=== PATIENT | male | born 1990 | race Caucasian/White ===

== ENCOUNTER 2019-08-21 06:38 | Inpatient (IN) | payer SELFPAY ==
[2019-08-21] VITALS (71 sets, daily range): BP systolic 30–174; BP diastolic 19–157; PULSE 88–167; RESP 12–23; TEMP 35.8–39.1; O2SAT 83–100; BMI 21.6; BMI 21.7
--- NOTE | 2019-08-21 07:00 | RAD_ITS ---
STUDY: X-RAY - CERVICAL SPINE REASON FOR EXAM: Male, 28 years old. ONE VIEW OF NECK TO SEE WHAT ET TUBE WAS DOING, (WHY IT WAS NOT ADVANCING) TECHNIQUE: 1 view(s) of the cervical spine were obtained. COMPARISON: None FINDINGS: ET tube is noted near the level of the first rib however, there appears to be increased outpouching of the trachea in the upper neck suggesting possible injury. Enteric tube is noted. RAD/Spine 1 View Any Level IMPRESSION: ET tube noted near the first rib with outpouching of the upper neck/tracheal region suggesting possible injury. Electronically Signed: Tyrone Glynn DO at 7:47 EST Tel , Service support ,
--- NOTE | 2019-08-21 07:00 | RAD_ITS ---
STUDY: X-RAY CHEST REASON FOR EXAM: Male, 28 years old. CPR -- ET AND OG TUBE PLACMENT -- READJUSTED ET TUBE -- PCXR 2 OF 3 TECHNIQUE: Single AP portable view of the chest. COMPARISON: Chest x-ray earlier FINDINGS: ET tube is noted in the high trachea roughly 13 cm from the ruben. Enteric tube below the left hemidiaphragm. Patchy airspace disease bilaterally is unchanged. RAD/Chest 1 View (Portable) IMPRESSION: As above Electronically Signed: Tyrone Glynn DO at 7:41 EST Tel , Service support ,
--- NOTE | 2019-08-21 07:00 | RAD_ITS ---
STUDY: X-RAY CHEST REASON FOR EXAM: Male, 28 years old. CPR -- ET AND OG TUBE PLACMENT -- PCXR 1 OF 3 TECHNIQUE: Single AP portable view of the chest. COMPARISON: Chest x-ray earlier FINDINGS: ET tube is noted however, its tip is roughly 11.5 cm from the ruben. Enteric tube below left hemidiaphragm. Again noted is patchy airspace disease bilaterally. RAD/Chest 1 View (Portable) IMPRESSION: As above Electronically Signed: Tyrone Glynn DO at 7:39 EST Tel , Service support ,
--- NOTE | 2019-08-21 07:00 | RAD_ITS ---
STUDY: X-RAY CHEST REASON FOR EXAM: Male, 28 years old. CPR -- ET AND OG TUBE PLACMENT -- READJUSTED ET TUBE -- PCXR 3 OF 3 TECHNIQUE: Single AP portable view of the chest. COMPARISON: Chest x-ray earlier FINDINGS: ET tube is noted terminating roughly 2.4 cm from the ruben. Enteric tube is seen below left hemidiaphragm. Hyperinflated. There is patchy airspace disease; left greater than right. Groundglass appearance. No consolidation or effusions Normal size heart. Normal mediastinum and ester. Normal visualized pulmonary arteries. Normal visualized aortic arch and descending thoracic aorta. Normal visualized thoracic spine. Normal visualized ribs, clavicles, and shoulders. There is no demonstrated abnormality of the visualized soft tissue structures of the upper abdomen. RAD/Chest 1 View (Portable) IMPRESSION: ET tube and enteric tube as above. Patchy airspace disease with groundglass appearance; left greater right. No consolidation or effusions. Electronically Signed: Tyrone Glynn DO at 7:34 EST Tel , Service support ,
[2019-08-21] MEDS: Norepinephrine 8 mg/250 mL 0.9% NS 9.4 MG CONT INF (07:12)
--- NOTE | 2019-08-21 07:16 | CT_ITS ---
STUDY: CT BRAIN WITHOUT CONTRAST REASON FOR EXAM: Male, 28 years old. Cardiac arrest, down for approx 1 hour, intubated. RADIATION DOSAGE (If Supplied By Facility): CTDIvol = ( ) mGy, DLP = ( ) mGycm TECHNIQUE: Transaxial CT imaging of the brain was performed without administration of intravenous contrast material. Individualized dose optimization techniques were used for this CT. COMPARISON: No relevant priors. FINDINGS: ET tube and enteric tube are noted. There is complete loss of phan/white matter differentiation suggesting severe anoxic brain injury. There is loss of sulci throughout the brain compatible with severe cerebral edema. Slitlike ventricles. There appears to be developing uncal herniation. CT/Brain/Head without Contrast IMPRESSION: Complete loss of phan/white matter differentiation throughout the brain. Complete loss of cerebral sulci compatible with extensive cerebral edema. Slitlike ventricles with developing uncal herniation. All these findings are compatible with severe anoxic brain injury. N.B. : The above information has been verbally conveyed by Tyrone Glynn DO to Salvador Houston MD, on 08/21/2019 07:37:51 (ET). Electronically Signed: Tyrone Glynn DO at 7:38 EST Tel , Service support ,
--- NOTE | 2019-08-21 07:17 | EKG12_ITS ---
Test Reason : CARDIAC ARREST Blood Pressure : / mmHG Vent. Rate : 094 BPM Atrial Rate : 094 BPM P-R Int : 138 ms QRS Dur : 148 ms QT Int : 406 ms P-R-T Axes : 054 142 055 degrees QTc Int : 507 ms Normal sinus rhythm Right bundle branch block Abnormal ECG Confirmed by JAYASHREE NAVARRETE, RASHEEDA ([id number]), deputy editor in chief PENNY BONILLA ([id number]) on 08/25/2019 8:49:07 AM Referred By: Ja Nguyen Confirmed By:JAZMIN BLANC MD
--- NOTE | 2019-08-21 07:19 | CT_ITS ---
STUDY: CTA CHEST REASON FOR EXAM: Male, 28 years old. CARDIAC ARREST DOWN FOR 1 HOUR RADIATION DOSAGE (If Supplied By Facility): CTDIvol = ( 13.35 ) mGy, DLP = ( 532.67 ) mGycm TECHNIQUE: The examination was performed with the intravenous administration of 100ML ISOVUE 370. Post-processing of the angiographic images was performed, with multiplanar reformation and 3D reconstruction. Individualized dose optimization techniques were used for this CT. COMPARISON: None. FINDINGS: ET tube and enteric tube are noted Normal enhancement of the main pulmonary artery and right and left pulmonary arteries. Normal enhancement of the bilateral peripheral pulmonary arteries. There is no demonstrated pulmonary embolism. Normal thoracic aorta and visualized great vessels. Normal heart and pericardium. Normal mediastinum. Normal hilar regions. Normal visualized trachea and bronchi. The lungs are well expanded. Diffuse and dense patchy airspace disease throughout the lung with groundglass appearance, predominantly in the upper lobes; left greater than right. No consolidation or effusions. Normal pleura. Normal chest wall structures. Normal osseous structures. Normal visualized upper abdomen. CT/CTA Chest W/WO Contrast IMPRESSION: Normal CTA chest examination, without a demonstrated pulmonary embolism Diffuse and dense patchy airspace disease throughout the lungs. Predominantly in the upper lobes. Electronically Signed: Tyrone Glynn DO at 7:57 EST Tel , Service support ,
[2019-08-21 07:32] LABS: Absolute Lymphocyte Count 2.41 X10^3/uL (0.83-4.51); Absolute Neutrophil Count 4.4 X10^3/uL (2.0-7.7); Basophil# 0.07 X10^3/uL; Basophil% 0.9 % (0-1); Eosinophil# 0.07 X10^3/uL; Eosinophils% 0.9 % (0-5); Hematocrit 44.2 % (40-54); Hemoglobin 14.7 g/dL (13.0-16.5); Lymphocyte # 2.41 X10^3/ul (4.0); Lymphocyte % 30.2 % (19-41); Mean Corp Hgb Conc 33.3 g/dL (32-36); Mean Corpuscular Volume 99.1 fL (80-94); Mean Platelet Vol. 9.1 fl (6.2-12.0); Monocyte% 8.8 % (0-10); NRBC Flagged by Analyzer 0 % (0-5); Neutrophil # 4.35 X10^3/uL (2.7-7.7); Neutrophil % 54.3 % (47-70); Platelet Count 227 K/mm3 (150-450); RBC Distribution Width SD 43.9 fl (35.1-43.9); Red Blood Count 4.46 M/mm3 (4.6-6.2)
[2019-08-21 07:33] LABS: Bacteria 0 SEEN /hpf (None Seen); Mucous, Urine 0 SEEN /hpf (<or=2+); Squamous Epithelial Cells - UA 0 SEEN /hpf (0-5); White Blood Cells 0 SEEN /hpf (0-5)
--- NOTE | 2019-08-21 07:33 | ED.RN ---
Addendum entered by Lucita Dupree 08/21/19 08:09: ett was pulled out to 24cm at the lip at 0715. levophed is 9.4cc/hr or 5mcg/min. Original Note: 0642 PT ARRIVED VIA COT WITH CPR IN PROGRESS,PT BEING VENTILATED VIA HIGH GEL VIA AMBU BAG.SEE CODE DOCUMENTATION.0647 PT WAS INTUBATED 7.5 ETT, 22 AT THE LIP LINE.EZ CAP POSITIVE,LUNGS EQUAL AND SYMETRICAL. 0655 TEMP BAILEY INSERTED BY EBER Ramírez WITH IMMEDIATE RETURN OF CLEAR YELLOW URINE. OG INSERTED WITH RETURN OF LIGHT BROWN BILE.AND VERIFIED WITH AIR BOLUS. 0657 PER ANGEL SALEH, PULSE LOST, CPR STARTED AND AFTER ONE DOSE OF 1MG EPINEPHRINE GIVEN,PULSE RETURNED. SINUS TACH. 0702 CHEST X-RAY COMPLETED. RT PULLED ETT OUT FURTHER TO LIP LINE OF 25CM. 0715 OR 9.4CC/HR.VERIFIED WITH CHEST X-RAY. CONFIRMED OG BY X-RAY.0712 LEVOPHED STARTED AT 5MCG/MIN. 0720 PT LEFT VIA BED TO CT SCAN WITH RT AND ANGEL RODRIGUEZ RN AND SATISH TOBIN.
[2019-08-21 07:36] LABS: Color, Urine Yellow (Yellow); Glucose, Dipstick Normal (Normal); Ketone-Dipstick 5 mg/dl (Negative); Leukocyte Esterase-Dipstick Negative /ul (Negative); Nitrite-Dipstick Negative (Negative); Occult Blood-Urine Negative /ul (Negative); Protein-Dipstick 30 mg/dl (Negative); Specific Gravity, Urine 1.015 (1.002-1.030); Urine Bilirubin Dipstick Negative (Negative); Urine Clarity Clear (Clear); Urine Urobilinogen Normal (Normal)
[2019-08-21 07:41] LABS: Alcohol, Blood (Medical)-Serum < 3.0 mg/dL
[2019-08-21 07:44] LABS: International Normalized Ratio 1.4; Prothrombin Time (Protime)PT. 16.6 SECONDS (11.7-14.9)
[2019-08-21 07:45] LABS: Partial Thromboplast Time 43.4 Seconds (24.1-36.2)
[2019-08-21 07:46] LABS: AST(SGOT) 108 U/L (15-37); Alanine Aminotransfer ALT/SGPT 95 U/L (16-61); Albumin, Serum 2.8 g/dL (3.2-5.0); Alkaline Phosphatase 68 U/L (45-117); Anion Gap 14 (5-15); BUN 9 mg/dL (7-18); BUN/Creat Ratio 4.7 RATIO (10-20); Calcium,Total 7.8 mg/dL (8.5-10.1); Chloride 104 mmol/L (98-107); Creatinine, Serum 1.91 mg/dL (0.70-1.30); EST Glomerular Filtration Rate 45 mL/min (>60); Est Glom Filt Rate - Afr Amer 54 mL/min (>60); Globulin 2.7 g/dL (2.2-4.2); Glucose 386 mg/dL (74-106); Potassium 3.6 mmol/L (3.5-5.1); Protein, Total 5.5 g/dL (6.4-8.2); Sodium Level 140 mmol/L (136-145)
[2019-08-21 07:47] LABS: Red Blood Cells-Urine 0-5 SEEN /hpf (0-5)
[2019-08-21 07:48] LABS: Amphetamine Urine VISTA NEGATIVE (<1000 ng/mL); Barbiturate Urine VISTA NEGATIVE (< 200 ng/mL); Benzodiazepine Urine VISTA NEGATIVE (< 200 ng/mL); Cocaine Urine VISTA NEGATIVE (< 300 ng/mL); Ecstacy Urine VISTA NEGATIVE (< 500 ng/mL); Methadone Urine VISTA NEGATIVE (< 300 ng/mL); PCP Urine VISTA NEGATIVE (< 25 ng/mL); THC Urine VISTA NEGATIVE (< 50 ng/mL); Vista UDS pH Range 5
[2019-08-21] MEDS: 0.9% Normal Saline 1,000 ML 1000 ML IV ×2 (07:54→08:23)
--- NOTE | 2019-08-21 08:06 | ED.RN ---
0708 REPORT GIVEN TO DMITRY SALEH AT BEDSIDE.
--- NOTE | 2019-08-21 08:17 | ED.VIS.GEN ---
History of Present Illness Chief Complaint: CPR Informant: [employer] Technician Narrative: Patient presents via EMS in cardiac arrest. They stated that the patient was in ventricular tachycardia when they arrived cardiac arrest. The shocked the patient's heart x1 and continue CPR. CPR was in progress for approximately 1 hour prior to the patient arriving in our facility. The patient received 6 rounds of epinephrine for loss of pulse throughout his arrest. Each epinephrine given because the patient's heart rate did come back for short period of time prior to stopping on its own. Upon arrival the patient is undergoing CPR. Past Medical History Primary Care Physician: NOT,DEFINED [Primary Care Provider] - Prior records reviewed: Yes Past Medical History: None Surgical History: - - Reviewed Lives: With Family Alcohol: None Drugs: None Review of Systems ROS: Unable to Obtain - Secondary to cardiac arrest Physical Exam Vital Signs/Narrative: Vital Signs Temp Pulse Pulse Pulse Pulse Resp BP 08/21/19 08:07 96.4 F L 108 H 14 158/121 H 08/21/19 08:06 108 H 14 158/121 H 08/21/19 07:35 103 H 20 H 08/21/19 07:34 100 23 H 159/118 H 08/21/19 07:15 96.5 F L 88 108/95 H 08/21/19 07:12 96.5 F L 100 20 H 108/95 H 08/21/19 06:42 111 H 111 H 114 H BP BP Pulse Ox 08/21/19 08:07 99 08/21/19 08:06 99 08/21/19 07:35 100 08/21/19 07:34 100 08/21/19 07:15 90 08/21/19 07:12 90 08/21/19 06:42 151/101 H 174/157 H General: Acute Distress - Patient comatose. Negative for: Well nourished, Well developed, No Acute Distress Head: Normocephalic, Atraumatic Eyes: - - Toes are fixed and dilated at 5 mm. Negative for: Perrl, EOMI ENT: Moist mucous membranes, No rhinorrhea Neck: Supple, Nontender Cardiovascular: - - Patient in cardiac arrest. Negative for: Regular rate, Regular rhythm, No murmurs Respiratory: - - Patient being bagged with breath sounds bilateral with rhonchi. Negative for: No distress, CTA bilaterally, Chest nontender Abdomen: Soft, Nondistended. Negative for: Nontender, Normal bowel sounds Back: Normal Inspection. Negative for: Nontender Extremities: No edema. Negative for: Nontender Skin: Cyanosis. Negative for: Normal color, No rash Neurological: Coma, - - GCS is 3. Negative for: Alert, Oriented x3, Cranial nerves II-XII grossly intact, Normal Strength, Normal Sensation Psychological: Negative for: Normal affect, Normal Mood Diagnostic/Tx/Re-eval - Medical Decision Making A Combitube is in his airway with good breath sounds bilaterally. The patient was placed on the monitor and in PEA. CPR was resumed ACLS protocol. The patient was given multiple rounds of epinephrine as well as bicarbonate. Blood sugar was approximately 200 for paramedics. The patient's pulse came back easily after epinephrine. The patient was intubated by by myself with a 7.5 ET tube. There were good breath sounds bilaterally and good fogging in the tube. OG and Jean catheter was placed. Chest x-ray initially shows the ET tube just distal to the cords. The ET tube was easily advanced. Patient's pulse ox came up into the mid 90s after intubation. Lab work was obtained. Patient was given IV fluids bolus through ACLS protocol. The patient was started on Levophed due to his inability to keep his pulse without this medication. The patient went down to the CAT scanner and CT brain shows severe anoxic brain injury with elevated pressures. CT chest shows nothing acute. EKG obtained after we got the patient back shows normal sinus rhythm with a right bundle branch block and no STEMI pattern. Patient was immediately discussed with cardiology who felt the patient is not a cardiac cath candidate. Patient discussed with ICU and the hospitalist and he was discussed with the family. The family wants us to continue full measures at this time. Lab work was obtained. Lab work shows a normal CBC. Electrolytes show acute renal failure. Liver function tests show evidence of hepatorenal failure. Influenza is positive. Chest x-ray and CAT scan do show infiltrates likely secondary to CPR and fluid in his lungs. Patient given empiric Zosyn and vancomycin. Analysis shows no evidence of infection. Urine toxicology negative. Alcohol is negative. Upon talking to the family they stated that he had a flulike illness over the last couple days. stated that he slumped over at home and lost consciousness prior to her calling the paramedics. Discussed case with ICU who stated we will not be doing pressure reduction with mannitol due to the severity of his illness and the low likelihood of recovery. Discussed with the hospitalist who stated we will hold off on Tamiflu at this time. - Critical Care Time Critical care time (excluding procedures): 75-104 minutes, Discussing w/Patient &/or Family/Lead Warehouse Associate, Discussing w/Consultants, Arranging Admission or Transfer, Performing Direct Patient Care at Bedside ED Disposition - Plan for ED Patient: Disposition: Acute Care Hospital [facility] Diagnosis: Cardiac arrest, Anoxic brain injury, Influenza
[2019-08-21 08:24] LABS: Lactic Acid 8.3 mmol/L (0.4-1.9)
[2019-08-21 08:40] LABS: Allen Test POS; Base Excess -13 mmol/L (-2 to +2); Blood Gas Specimen Type ART; FI02 100; Mode A-C; O2 Delivery Device Vent; PEEP 8; PO2 108 mmHG (75-100); RR 16; SITE R Radial; SO2 96 % (95-99); Time Given 820; Total Carbon Dioxide 17 mmol/L; Vt 450; pCO2 46.4 mmHg (35-45); pH 7.15 (7.35-7.45)
--- NOTE | 2019-08-21 08:55 | CPS ---
critical ABG results read to at 8515
[2019-08-21] MEDS: Vancomycin IV 1,000 MG/200 ML BAG 200 MG IV (09:01)
[2019-08-21] MEDS: 0.9% Normal Saline 1,000 ML 150 ML IV (09:40)
--- NOTE | 2019-08-21 09:57 | ECHOCS_ITS ---
Reason For Study: CARDIAC ARREST Procedure This was a 2D Doppler, Color Flow transthoracic echocardiogram. Exam performed portable in ICU/CCU. Left Ventricle Moderately dilated left ventricle. The estimated ejection fraction is 10-15 %. Stage 1 diastolic dysfunction. There is severe global hypokinesis of the left ventricle. Right Ventricle Mildly dilated right ventricle. Severe global right ventricular systolic dysfunction. Atria Normal left atrium. Normal right atrium. No doppler evidence for ASD. Mitral Valve There is no mitral valve stenosis. No mitral valve insufficiency. Tricuspid Valve There is no tricuspid stenosis. Trivial tricuspid valve insufficiency. Pulmonary artery systolic pressure is 30-35 mmHg. Aortic Valve Trisinus/trileaflet aortic valve. There is no aortic stenosis. No aortic valve insufficiency. Pulmonic Valve There is no pulmonic valvular stenosis. Trivial pulmonic valve insufficiency identified. Great Vessels Normal aortic root. Pericardium/Pleural No pericardial effusion. Medication Diluted definity 3ml given slow IV push to enhance endocardial definition. MMode/2D Measurements & Calculations LVIDd: 5.6 cm IVSd: 0.79 cm Ao root diam: 3.2 cm LVIDs: 4.9 cm LVPWd: 1.2 cm FS: 10.9 % LAV(MOD-bp): 21.4 ml LVAd ap4: 37.6 cm2 SV(MOD-sp4): 16.0 ml LAV(MOD-bp) Indexed: 11.1 ml/m2 EDV(MOD-sp4): 142.4 ml LAV(MOD-sp2): 15.9 ml EDV(sp4-el): 148.1 ml LAV(MOD-sp4): 24.0 ml LVAs ap4: 35.1 cm2 ESV(MOD-sp4): 126.3 ml ESV(sp4-el): 130.9 ml EF(MOD-sp4): 11.3 % EF(sp4-el): 11.6 % SV(sp4-el): 17.2 ml LA A4 area: 11.4 cm2 LA dimension(2D): 2.0 cm RA A4 area: 9.1 cm2 Doppler Measurements & Calculations MV E max johan: 60.2 cm/sec Lat Peak E' Johan: 13.7 cm/sec Med Peak E' Johan: 10.5 cm/sec MV A max johan: 27.2 cm/sec E/E' lat: 4.4 E/E' med: 5.7 MV E/A: 2.2 MV P1/2t max johan: 59.9 cm/sec Ao V2 max: 61.2 cm/sec LV V1 max: 52.1 cm/sec MV P1/2t: 60.9 msec Ao max P.5 mmHg LV V1 max P.1 mmHg MV dec slope: 287.9 cm/sec2 MVA(P1/2t): 3.6 cm2 PA V2 max: 68.3 cm/sec TR max johan: 242.0 cm/sec TR max P.5 mmHg Interpretation Summary The estimated ejection fraction is 10-15 %. Stage 1 diastolic dysfunction. There is severe global hypokinesis of the left ventricle. Severe global right ventricular systolic dysfunction. Contrast injection was performed. The study was technically difficult. Ordering Physician: Ja Nguyen Referring Physician: Ja Nguyen Performed By: Eliane Pike RDCS
--- NOTE | 2019-08-21 10:02 | CON.PCM_ITS ---
Capacity - Capacity Assessment Tool Can the patient make a choice & communicate that choice?: No Can the patient understand benefits, risks and alternatives?: No Can the patient make a logical, rational choice?: No Is there an impending, emergent risk to the patient?: No Does the patient have an Advance Directive?: No Is there a Surrogate Available?: Yes i.e. close relative (spouse, child, parent, sibling)?: Yes Reason for Consult Date of Consultation: 08/21/19 Reason for Consultation: Acute hypoxemic respiratory failure/status post cardiac arrest History of Present Illness: The patient is a 28-year-old male, with a history as outlined below, who presented to the emergency department via EMS after developing cardiac arrest in his home environment. The patient was apparently preparing for work this morning when he went into pulseless wide-complex tachycardia. The patient received ACLS by EMS and was shocked x1. Apparently, due to the location of the patient's home and time associated with EMS response and transport to the hospital, there was an estimated 1 hour of downtime prior to arriving to the emergency department. Multiple rounds of epinephrine had been given prior to his arrival. In the emergency department, the patient was noted to be in PEA and received continued rounds of epinephrine. Eventually, return of spontaneous circulation was achieved. Of note, the patient arrived to the hospital with an LMA in place. He was emergently intubated upon his arrival to the emergency department. Initial laboratory evaluation revealed no evidence of a leukocytosis. Initial arterial blood gas revealed a pH of 7.15 with a corresponding PCO2 of 46 and PO2 of 108. Chemistry profile was notable for acute kidney injury with a creatinine of 1.91. Glucose was elevated at 386. Lactate was elevated to 8.3. AST and ALT were mildly increased to 108 and 95, respectively. Initial troponin was elevated to 0.472. Urinalysis was unremarkable. Toxicology screen was negative. Alcohol level was negative. Rapid influenza screen was positive for influenza B. A stat head CT revealed complete loss of phan/white matter differentiation along with slitlike ventricles with developing uncal herniation. These findings were consistent with anoxic brain injury. CTA chest revealed no evidence for pulmonary embolism. However, there was extensive bilateral airspace disease. The patient was started empirically on antimicrobials and admitted to the medical intensive care unit for further management. Past Medical History Allergies No Known Allergies Allergy (Verified 08/21/19 08:41) Home Medications: Ambulatory Orders Medication Instructions Recorded NK 08/21/19 Surgical History: - - Reviewed Lives: With Family Smoking Status: Unknown if ever smoked Alcohol: None Drugs: None - *Family History Maternal History Items: No pertinent history Paternal History Items: No pertinent history Review of Systems Unable to obtain accurate/complete ROS d/t: Due to current intubation and mechanical ventilation status Objective: The patient's most recent lab work, culture data and imaging studies have all been personally reviewed. Respiratory panel was positive for influenza B. - Physical Exam Vitals/I&O's: Vital Signs Temp Pulse Resp BP Pulse Ox 96.6 F L 100 16 105/61 95 08/21/19 09:09 08/21/19 09:09 08/21/19 09:09 08/21/19 09:09 08/21/19 09:09 Oxygen Flow Rate (L/min) 100 Oxygen Delivery Method Mechanical Ventilator Weight: 155 lb Body Mass Index (BMI) 21.6 Intake and Output for Last 24 Hours 08/19/19 08/20/19 08/21/19 23:59 23:59 23:59 Intake Total 2099.2099. Balance 2099.2099. General: - - Currently intubated and mechanically ventilated. Frequent dyssynchrony noted on assist control. HEENT: Atraumatic, Normocephalic, - - Pupils are fixed and dilated Oral: No Gingival or Mucosal Lesions/ Ulcerations, - - Endotracheal and OG tubes currently in place Neck: Supple, No Nodes, Trachea Midline Lungs: - - Significant coarse bilateral crackles present Cardiovascular: Normal S1, Normal S2, No murmurs, Tachycardic Abdomen: Soft, Non-Distended, Hypoactive Bowel Sounds Extremities: No clubbing, No cyanosis, No edema Skin: No breakdown Musculoskeletal: No Muscle Wasting Lymphatic: No Cervical, Supraclavicular, or Inguinal Adenopathy Neurological: - - Currently nonresponsive to verbal and painful stimulation. No gag reflex present. Nevertheless, the patient does initiate breaths on spontaneous mode of mechanical ventilation. Labs (Last 48 Hours) 08/21/19 08/21/19 08/21/19 06:50 06:50 06:50 WBC 8.0 RBC 4.46 L Hgb 14.7 Hct 44.2 MCV 99.1 H MCH 33.0 H MCHC 33.3 RDW Std Deviation 43.9 RDW Coeff of [place] 12.0 Plt Count 227 MPV 9.1 Immature Gran % (Auto) 4.900 H Neut % (Auto) 54.3 Lymph % (Auto) 30.2 [place] % (Auto) 8.8 Eos % (Auto) 0.9 Baso % (Auto) 0.9 Absolute Neuts (auto) 4.4 Absolute Lymphs (auto) 2.41 Nucleated RBC % 0 PT 16.6 H INR 1.4 APTT 43.4 H Specimen Type Sample Site pH Bicarbonate Actual POC Total CO2 Base Excess O2 Saturation O2 % ABG pCO2 ABG pO2 Mike Test Respiration Rate O2 Delivery Device Vent Mode Tidal Volume POC PEEP Blood Gas Notified Whom Blood Gas Notified Time Sodium 140 Potassium 3.6 Chloride 104 Carbon Dioxide 22.0 Anion Gap 14 BUN 9 Creatinine 1.91 H Est GFR (MDRD) Af Amer 54 L Est GFR (MDRD) Non-Af 45 L BUN/Creatinine Ratio 4.7 L Glucose 386 H Lactic Acid Calcium 7.8 L Phosphorus Magnesium Total Bilirubin 0.30 AST 108 H ALT 95 H Alkaline Phosphatase 68 Troponin I 0.472 H Total Protein 5.5 L Albumin 2.8 L Globulin 2.7 Albumin/Globulin Ratio 1.0 Urine Color Urine Clarity Urine pH Ur Specific [place] Urine Protein Urine Glucose (UA) Urine Ketones Urine Occult Blood Urine Nitrite Urine Bilirubin Urine Urobilinogen Ur Leukocyte Esterase Urine RBC Urine WBC Ur Squamous Epith Cells Urine Bacteria Urine Mucus Urine Opiates Screen Urine Methadone Screen Ur Barbiturates Screen Ur Phencyclidine Scrn Ur Amphetamines Screen U Methamphetamin-MDMA U Benzodiazepines Scrn Urine Cocaine Screen U Cannabinoids Screen Ur Drug Screen Comment Ethyl Alcohol 08/21/19 08/21/19 08/21/19 06:50 06:50 06:58 WBC RBC Hgb Hct MCV MCH MCHC RDW Std Deviation RDW [place]eff of [place] Plt Count MPV Immature Gran % (Auto) Neut % (Auto) Lymph % (Auto) [place] % (Auto) Eos % (Auto) Baso % (Auto) Absolute Neuts (auto) Absolute Lymphs (auto) Nucleated RBC % PT INR APTT Specimen Type Sample Site pH Bicarbonate Actual POC Total CO2 Base Excess O2 Saturation O2 % ABG pCO2 ABG pO2 Mike Test Respiration Rate O2 Delivery Device Vent Mode Tidal Volume POC PEEP Blood Gas Notified Whom Blood Gas Notified Time Sodium Potassium Chloride Carbon Dioxide Anion Gap BUN Creatinine Est GFR (MDRD) Af Amer Est GFR (MDRD) Non-Af BUN/Creatinine Ratio Glucose Lactic Acid Calcium Phosphorus Pending Magnesium Pending Total Bilirubin AST ALT Alkaline Phosphatase Troponin I Total Protein Albumin Globulin Albumin/Globulin Ratio Urine Color Yellow Urine Clarity Clear Urine pH 6.0 Ur Specific [place] 1.015 Urine Protein 30 H Urine Glucose (UA) Normal Urine Ketones 5 H Urine Occult Blood Negative Urine Nitrite Negative Urine Bilirubin Negative Urine Urobilinogen Normal Ur Leukocyte Esterase Negative Urine RBC 0-5 SEEN Urine WBC 0 SEEN Ur Squamous Epith Cells 0 SEEN Urine Bacteria 0 SEEN Urine Mucus 0 SEEN Urine Opiates Screen Urine Methadone Screen Ur Barbiturates Screen Ur Phencyclidine Scrn Ur Amphetamines Screen U Methamphetamin-MDMA U Benzodiazepines Scrn Urine Cocaine Screen U Cannabinoids Screen Ur Drug Screen Comment Ethyl Alcohol < 3.0 08/21/19 08/21/19 08/21/19 06:58 07:44 08:24 WBC RBC Hgb Hct MCV MCH MCHC RDW Std Deviation RDW [place]eff [place] Plt Count MPV Immature Gran % (Auto) Neut % (Auto) Lymph % (Auto) [place] % (Auto) Eos % (Auto) Baso % (Auto) Absolute Neuts (auto) Absolute Lymphs (auto) Nucleated RBC % PT INR APTT Specimen Type ART Sample Site R Radial pH 7.15 L* Bicarbonate Actual 16.0 L POC Total CO2 17 Base Excess -13 L O2 Saturation 96 O2 % 100 ABG pCO2 46.4 H ABG pO2 108 H Mike Test POS Respiration Rate 16 O2 Delivery Device Vent Vent Mode A-C Tidal Volume 450 POC PEEP 8 Blood Gas Notified Whom ED MD Blood Gas Notified Time 820 Sodium Potassium Chloride Carbon Dioxide Anion Gap BUN Creatinine Est GFR (MDRD) Af Amer Est GFR (MDRD) Non-Af BUN/Creatinine Ratio Glucose Lactic Acid 8.3 H* Calcium Phosphorus Magnesium Total Bilirubin AST ALT Alkaline Phosphatase Troponin I Total Protein Albumin Globulin Albumin/Globulin Ratio Urine Color Urine Clarity Urine pH Ur Specific [place] Urine Protein Urine Glucose (UA) Urine Ketones Urine Occult Blood Urine Nitrite Urine Bilirubin Urine Urobilinogen Ur Leukocyte Esterase Urine RBC Urine WBC Ur Squamous Epith Cells Urine Bacteria Urine Mucus Urine Opiates Screen NEGATIVE Urine Methadone Screen NEGATIVE Ur Barbiturates Screen NEGATIVE Ur Phencyclidine Scrn NEGATIVE Ur Amphetamines Screen NEGATIVE U Methamphetamin-MDMA NEGATIVE U Benzodiazepines Scrn NEGATIVE Urine Cocaine Screen NEGATIVE U Cannabinoids Screen NEGATIVE Ur Drug Screen Comment Ethyl Alcohol Microbiology 08/21/19 07:36 Mucosa - Nose Influenza Types A,B Direct FA (KENDALL) - Final Influenzae B Clinical Impression(s) from Imaging Studies Chest X-Ray 08/21/19 07:00 IMPRESSION: As above Electronically Signed: Tyrone Glynn DO at 7:39 EST Tel , Service support , Chest X-Ray 08/21/19 07:00 IMPRESSION: As above Electronically Signed: Tyrone Glynn DO at 7:41 EST Tel , Service support , Chest X-Ray 08/21/19 07:00 IMPRESSION: ET tube and enteric tube as above. Patchy airspace disease with groundglass appearance; left greater right. No consolidation or effusions. Electronically Signed: Tyrone Glynn DO at 7:34 EST Tel , Service support , Spine X-Ray 08/21/19 07:00 IMPRESSION: ET tube noted near the first rib with outpouching of the upper neck/tracheal region suggesting possible injury. Electronically Signed: Tyrone Glynn DO at 7:47 EST Tel , Service support , Brain CT 08/21/19 07:16 IMPRESSION: Complete loss of phan/white matter differentiation throughout the brain. Complete loss of cerebral sulci compatible with extensive cerebral edema. Slitlike ventricles with developing uncal herniation. All these findings are compatible with severe anoxic brain injury. N.B. : The above information has been verbally conveyed by Tyrone Glynn DO to Salvador Houston MD, on 08/21/2019 07:37:51 (ET). Electronically Signed: Tyrone Glynn DO at 7:38 EST Tel , Service support , ADDENDUM: 08/21/19 0745 IMPRESSION: Complete loss of phan/white matter differentiation throughout the brain. Complete loss of cerebral sulci compatible with extensive cerebral edema. Slitlike ventricles with developing uncal herniation. All these findings are compatible with severe anoxic brain injury. N.B. : The above information has been verbally conveyed by Tyrone Glynn DO to Salvador Houston MD, on 08/21/2019 07:37:51 (ET). Electronically Signed: Tyrone Glynn DO at 7:38 EST Tel , Service support , Chest CTA 08/21/19 07:19 IMPRESSION: Normal CTA chest examination, without a demonstrated pulmonary embolism Diffuse and dense patchy airspace disease throughout the lungs. Predominantly in the upper lobes. Electronically Signed: Tyrone Glynn DO at 7:57 EST Tel , Service support , Current Medications Famotidine (Pepcid) 20 mg GT BID ETHEL Glucagon () 1 mg IM .X1 PRN PRN Reason: Hypoglycemia Heparin Sodium (Porcine) (Heparin Na) 5,000 unit SC Q8 [facility] Norepinephrine Bitartrate 8 mg (/ Sodium Chloride) 250 mls @ 9.375 mls/hr CONT INF .[id number] ETHEL; Protocol Last Admin: 08/21/19 07:12 Dose: 5 mcg/min, 9.4 mls/hr Documented by: Sodium Chloride () 1,000 mls @ 150 mls/hr IV .Q6H40M ETHEL Dextrose (Dextrose 10%-Water) 250 mls @ 999 mls/hr IV .Q16M PRN; Protocol PRN Reason: HYPOGLYCEMIA Vancomycin IV Pharmacy to Dose (1 ea/ Sodium Chloride) 500 mls @ 250 mls/hr IV X1 PRN; Protocol PRN Reason: Rx to Dose Piperacillin Sod/Tazobactam (Sod 3.375 gm/ Sodium Chloride) 50 mls @ 12.5 mls/hr IV Q8 ETHEL Fentanyl () 100 mls @ 5 mls/hr IV UD ETHEL; Protocol Insulin Human Lispro (Humalog Kwikpen (Bkc)) 0 unit SC Q6 ETHEL; Protocol Oseltamivir Phosphate (Tamiflu) 30 mg GT BID ETHEL Stop: 08/25/19 22:01 Assessment/Plan RECOMMENDATIONS: 1. Check mag and Phos levels given ectopy on telemetry. 2. Obtain arterial blood gas in 1 hour. 3. Wean FiO2 to maintain oxygen saturations at or above 90%. 4. Continue broad-spectrum antimicrobials. Continue Tamiflu. 5. Start Pepcid for prophylaxis. IMPRESSIONS: 1. Acute combined respiratory failure status post out of hospital cardiac arrest The exact precipitating etiology for the patients out of hospital cardiac arrest is unclear. Per family, he has no known cardiac history. The patient did have an extensive amount of downtime prior to successful return of spontaneous circulation. The patient's ventilator parameters will be augmented to optimize his minute ventilation in an attempt to drive down his PCO2. FiO2 will be weaned as tolerated. The patient was positive for influenza B in the emergency department. His CTA chest showed no evidence for pulmonary embolism. However, there was evidence of significant bilateral airspace disease. Therefore, given his full CODE STATUS, the patient will be placed on empiric antimicrobials and cultures will be obtained. 2. Encephalopathy Appears to be secondary to anoxic brain injury suffered as a consequence of #1. The patients CT head revealed significant findings concerning for global anoxic brain injury and developing uncal herniation. 3. Severe sepsis As noted above, the patient will be started on broad-spectrum antimicrobials, given concern for influenza infection with possible superimposed bacterial pneumonia. He has received supplemental IV fluid hydration and is currently hemodynamically stable. Suspect the elevated lactate is secondary to profound hypoxemia on presentation. In addition, the patient has also been started on Tamiflu. 4. Acute kidney injury/hyperphosphatemia/hypomagnesemia Suspect secondary to ischemic ATN in the setting of #1. We will continue current supportive measures as noted above and monitor urine output. 5. CODE STATUS/advance care planning I did have a very fede discussion with the patient's and mother regarding his current clinical status and overall poor prognosis. I explained their options for moving forward in his care, including an explanation of the differences in CODE STATUS. I did advocate that they consider transitioning the patient to DNR CCA, as I am concerned that given the findings noted on CT head he may once again experience cardiac arrest in the near future. They voiced to me that they would like to talk things over as a family and are also entertaining the idea of transferring the patient to a tertiary care facility UPDATE: Over the course of the afternoon, the patient continued to decompensate clinically. The hospitalist contacted multiple tertiary care facilities due to family request for transfer. [facility] in [place] did accept the patient. However, upon arrival of the transport team from [place], the patient once again experienced PEA cardiac arrest. ACLS was initiated and 1 round of epi was administered. Return of spontaneous circulation was achieved. The patient required the initiation of both Levophed and vasopressin to maintain hemodynamic stability. A great deal of time was spent talking with the family and transport team regarding the patient's clinical state and my concern that the patient would decompensate further while en route to [place]. I did explain to the patient's family that [facility] would likely not do anything in addition to what was already being employed clinically for the patient here. I did call and speak with the ICU team at [facility] who did confirm that the support that he would receive from them would be exactly the same as that he is receiving here. Following this discussion, the patient's decided to keep the patient here, but wished that he remain a full code. TIME: 85 minutes of critical care time, independent of procedures, was spent addressing the patient's acute combined respiratory failure, status post out of hospital cardiac arrest, encephalopathy, severe sepsis, acute kidney injury, electrolyte derangements, review of all data and collaboration with the care team. ([id number], [id number]) Code Visit Procedures: 85240 Critial Care Addl 30 Min 9xxxx: 11132 Critical care first hour
--- NOTE | 2019-08-21 10:24 | PCM.RX.CS ---
Consult Pharmacy has been consulted to manage selected antiobiotic: Vancomycin Type of Consult: New start Suspected Infection: Other Prior Doses of Antibiotics Received/Current Regimen: VANCOMYCIN 1000MG IV X1 IN ED 08/21/19 @0901 Labs: Sodium 140 mmol/L (136-145) 08/21/19 06:50 Potassium 3.6 mmol/L (3.5-5.1) 08/21/19 06:50 Chloride 104 mmol/L (98-107) 08/21/19 06:50 Carbon Dioxide 22.0 mmol/L (21.0-32.0) 08/21/19 06:50 Anion Gap 14 (5-15) 08/21/19 06:50 BUN 9 mg/dL (7-18) 08/21/19 06:50 Creatinine 1.91 mg/dL (0.70-1.30) H 08/21/19 06:50 Est GFR (MDRD) Af Amer 54 mL/min (>60) L 08/21/19 06:50 Est GFR (MDRD) Non-Af 45 mL/min (>60) L 08/21/19 06:50 BUN/Creatinine Ratio 4.7 RATIO (10-20) L 08/21/19 06:50 Glucose 386 mg/dL (74-106) H 08/21/19 06:50 Microbiology: Microbiology 08/21/19 07:36 Mucosa - Nose Influenza Types A,B Direct FA (KENDALL) - Final Influenzae B Weight used for dosin.3 kg Estimated Creatinine Clearance: 57 ML/MIN Goal Trough: 15-20 mcg/mL Pharmacy Plan for Drug Dosing: Pharmacy to dose vancomycin. The patient was ordered a loading dose, which would qualify the patient for 1750mg. Since the patient got 1000mg IV in the ER, will give a supplement dose of 750mg to start now. Will go ahead and start scheduled dosing 750mg IV Q12hr and draw a trough prior to the 4th dose of scheduled regimen. Will continue to follow. PLAN/RECOMMENDATIONS 1. Vancomycin 750mg IV Q12hrs to start 08/21/19 @1100 2. Trough scheduled prior to 4th dose of SCHEDULED regimen 08/22/19 @2230 3. Pharmacy Service will continue to monitor and adjust dosing as required.
[2019-08-21 10:32] LABS: Magnesium 2.8 mg/dL (1.6-2.6)
[2019-08-21 11:01] LABS: Allen Test POS; Base Excess -10 mmol/L (-2 to +2); Bicarbonate 19.4 mmol/L (22-26); Blood Gas Specimen Type ART; FI02 100; Mode A-C; O2 Delivery Device Vent; PEEP 5; PO2 94 mmHG (75-100); RR 14; SITE L Radial; SO2 94 % (95-99); Time Given 1040; Total Carbon Dioxide 21 mmol/L; Vt 500; pCO2 60.7 mmHg (35-45); pH 7.11 (7.35-7.45)
[2019-08-21] MEDS: fentaNYL drip 100 ML 5 MCG IV (11:26)
[2019-08-21] MEDS: Lactated Ringers 1,000 ML 999 ML IV ×2 (11:30→14:34)
[2019-08-21 11:47] LABS: Reflex Lactate? Y
--- NOTE | 2019-08-21 11:48 | CPS ---
critical ABG results cortexted to at 1056. He is aware and vent changes were made
--- NOTE | 2019-08-21 12:28 | CASEMGMT ---
Social Work Pt presents with cardiac arrest and anoxic brain injury. Pt currently on ventilator. KAVEH entered room and met with pt North and pt father in law. Emotional support provided. Many family members are present in waiting area. SW also met with family and offered support. Pt has two daughters, age 12 and 9 and North inquiring if they can see pt. KAVEH placed call to Ruth RN Infection Prevention to inquire if children can visit pt. Ruth confirms that due to end of life situation, policy allows for children to visit pt. KAVEH met with North, additional support provided. SW informed North children can visit pt but did inform that pt is positive for flu and risk to children. Emphasized importance to wear mask and wash hands. KAVEH also talked with North about talking to daughters about how pt looks with ventilator and IVs prior to taking them into pt room and to consider how daughters will respond to seeing pt as he is currently. North expressed understanding and will think about best option for the girls. SW encouraged Pt to verbalize feelings regarding sudden medical emergency of pt. Extensive time spent with pt . Walter expressing appreciation for support. SW will remain available for further needs of pt family. LLOYD Olsen
[2019-08-21 12:47] LABS: Lactic Acid 2.8 mmol/L (0.4-1.9)
[2019-08-21] MEDS: Dextrose 10%-Water 250 ML 999 ML IV (13:15)
--- NOTE | 2019-08-21 14:17 | CASEMGMT ---
Social Work Pt to be transferred to tertiary hospital. Pt not in pt room. SW entered waiting area. Pt not present but pt father in law present. SW spoke with father in law who states went home to get clothes and will be returning shortly. Support provided to pt father in law. SW will remain available should further needs arise. LLOYD Olsen
[2019-08-21 14:36] LABS: Bedside Glucose 111 mg/dL (70-110)
--- NOTE | 2019-08-21 14:48 | HP.PCM_ITS ---
Problem List (1) Cardiac arrest Status: Acute History of Present Illness Date of Admission: 08/21/19 Chief Complaint: Out of hospital cardiac arrest The patient is a 28 year old M who was brought in by squad to [facility] emergency room having suffered a cardiac arrest at home in the presence of his , squad arrived on scene and found the patient to be in ventricular tachycardia and he was shocked and CPR was started. Patient was given multiple doses of epinephrine and CPR continued for approximately an hour until he came to the emergency room at [facility]. On arrival, he was noted to be in PEA, CPR was continued and the patient was intubated and given epinephrine and bicarbonate. Pulse ox was able to be maintained after he was intubated and he was taken to CT where a head CT showed anoxic brain injury with elevated intracranial pressures. CT of the chest showed bilateral infiltrates felt to be secondary to CPR and fluid accumulation in the lungs, EKG obtained after the patient returned from CT showed a normal sinus rhythm with a right bundle branch block pattern. Discussions were carried out by the emergency room physician with the family including the patient's and [id number], they wanted full measures and cardiology was contacted by the emergency room physician, cardiology did not feel the patient was a candidate for a cardiac cath. Critical care was contacted and Dr. Nguyen saw the patient in the emergency room, patient was given empiric Zosyn and vancomycin. Dr. Nguyen did not feel that administration of mannitol would help the patient's medical condition. Hospitalist service was called for admission, I saw the patient briefly in the emergency room and talked with the patient's [id number] who told me that she believed there was hope for the patient and that the family wanted to continue aggressive care. Patient was admitted to ICU under serious condition. Past Medical History Allergies No Known Allergies Allergy (Verified 08/21/19 08:41) Home Medications: Ambulatory Orders Medication Instructions Recorded NK 08/21/19 Surgical History: noncontributory, - - Reviewed Psychiatric History: No pertinent psych hx Lives: With Family Smoking Status: Never smoker Tobacco Use: Non-smoker Alcohol: None Drugs: None - *Family History Maternal History Items: No pertinent history Paternal History Items: No pertinent history Review of Systems Comment: Review of systems was unobtainable due to the fact the patient was intubated and unresponsive, information was obtained from the patient's medical record VTE Information - Inpt Only VTE Present on Admission: No VTE Mechan Device Prophylaxis: None VTE Pharm Prophylaxis ordered?: Yes Patient Problems: Active and Suspected Problems Cardiac arrest (Acute) Anoxic brain injury (Acute) Influenza (Acute) - Physical Exam Vitals/I&O's: Vital Signs Temp Pulse Resp BP Pulse Ox 96.7 F L 144 H 16 63/39 L 98 08/21/19 13:00 08/21/19 14:00 08/21/19 14:00 08/21/19 14:00 08/21/19 14:00 Oxygen Flow Rate (L/min) 100 Oxygen Delivery Method Mechanical Ventilator Weight: 70.3 kg Body Mass Index (BMI) 21.7 Intake and Output for Last 24 Hours 08/19/19 08/20/19 08/21/19 23:59 23:59 23:59 Intake Total 2420.42 / 2420.42 Balance 2420.42 / 2420.42 General: - - Patient is intubated and nonresponsive to painful or verbal stimuli HEENT: Atraumatic, Normocephalic, - - Pupils are 5 mm bilaterally and nonresponsive to light Oral: Moist Mucosa Neck: No JVD, Negative Carotid Bruits, Trachea Midline, Thyroid Normal Size and Texture Lungs: Normal air movement, Rhonchi - Expiratory rhonchi are noted bilaterally Cardiovascular: Regular rate, Regular Rhythm, No murmurs, PMI Normal, No rub noted, Tachycardic Abdomen: Bowel Sounds Present, Soft, Non Tender Extremities: No edema, Capillary Refill Less than 3 Seconds Skin: No rashes, No breakdown Neurological: Cranial nerves II-XII grossly intact, - - Patient appears comatose Psych/Mental Status: - - Patient is comatose Microbiology Past 72 Hours 08/21/19 07:36 Mucosa - Nose Influenza Types A,B Direct FA ([place]) - Final Influenzae B Laboratory Results 08/21/19 06:50: WBC 8.0, RBC 4.46 L, Hgb 14.7, Hct 44.2, MCV 99.1 H, MCH 33.0 H, MCHC 33.3, RDW Std Deviation 43.9, RDW Coeff of [place] 12.0, Plt Count 227, MPV 9.1, Immature Gran % (Auto) 4.900 H, Neut % (Auto) 54.3, Lymph % (Auto) 30.2, [place] % (Auto) 8.8, Eos % (Auto) 0.9, Baso % (Auto) 0.9, Absolute Neuts (auto) 4.4, Absolute Lymphs (auto) 2.41, Nucleated RBC % 0 08/21/19 06:50: PT 16.6 H, INR 1.4, APTT 43.4 H 08/21/19 06:50: Sodium 140, Potassium 3.6, Chloride 104, Carbon Dioxide 22.0, Anion Gap 14, BUN 9, Creatinine 1.91 H, Est GFR (MDRD) Af Amer 54 L, Est GFR (MDRD) Non-Af 45 L, BUN/Creatinine Ratio 4.7 L, Glucose 386 H, Calcium 7.8 L, Total Bilirubin 0.30, AST 108 H, ALT 95 H, Alkaline Phosphatase 68, Troponin I 0.472 H, Total Protein 5.5 L, Albumin 2.8 L, Globulin 2.7, Albumin/Globulin Ratio 1.0 08/21/19 06:50: Ethyl Alcohol < 3.0 08/21/19 06:50: Phosphorus 9.0 H*, Magnesium 2.8 H 08/21/19 06:58: Urine Color Yellow, Urine Clarity Clear, Urine pH 6.0, Ur Specific [place] 1.015, Urine Protein 30 H, Urine Glucose (UA) Normal, Urine Ketones 5 H, Urine Occult Blood Negative, Urine Nitrite Negative, Urine Bilirubin Negative, Urine Urobilinogen Normal, Ur Leukocyte Esterase Negative, Urine RBC 0-5 SEEN, Urine WBC 0 SEEN, Ur Squamous Epith Cells 0 SEEN, Urine Bacteria 0 SEEN, Urine Mucus 0 SEEN 08/21/19 06:58: Urine Opiates Screen NEGATIVE, Urine Methadone Screen NEGATIVE, Ur Barbiturates Screen NEGATIVE, Ur Phencyclidine Scrn NEGATIVE, Ur Amphetamines Screen NEGATIVE, U Methamphetamin-MDMA NEGATIVE, U Benzodiazepines Scrn NEGATIVE, Urine Cocaine Screen NEGATIVE, U Cannabinoids Screen NEGATIVE, Ur Drug Screen Comment 08/21/19 07:44: Lactic Acid 8.3 H* 08/21/19 08:24: Specimen Type ART, Sample Site R Radial, pH 7.15 L*, Bicarbonate Actual 16.0 L, POC Total CO2 17, Base Excess -13 L, O2 Saturation 96, O2 % 100, ABG pCO2 46.4 H, ABG pO2 108 H, Mike Test POS, Respiration Rate 16, O2 Delivery Device Vent, Vent Mode A-C, Tidal Volume 450, POC PEEP 8, Blood Gas Notified Whom ED , Blood Gas Notified Time 820 08/21/19 10:20: MRSA (PCR) Pending 08/21/19 10:45: Specimen Type ART, Sample Site L Radial, pH 7.11 L*, Bicarbonate Actual 19.4 L, POC Total CO2 21, Base Excess -10 L, O2 Saturation 94 L, O2 % 100, ABG pCO2 60.7 H, ABG pO2 94, Mike Test POS, Respiration Rate 14, O2 Delivery Device Vent, Vent Mode A-C, Tidal Volume 500, POC PEEP 5, Blood Gas Notified Whom ICU , Blood Gas Notified Time 1040 08/21/19 12:05: Lactic Acid 2.8 H* 08/21/19 14:13: POC Glucose 111 H Current Medications Famotidine (Pepcid) 20 mg GT BID [facility] Last Admin: 08/21/19 13:23 Dose: Not Given Documented by: Glucagon () 1 mg IM .X1 PRN PRN Reason: Hypoglycemia Heparin Sodium (Porcine) (Heparin Na) 5,000 unit SC Q8 [facility] Last Admin: 08/21/19 14:35 Dose: Not Given Documented by: Norepinephrine Bitartrate 8 mg (/ Sodium Chloride) 250 mls @ 9.375 mls/hr CONT INF .[id number] [facility]; Protocol Last Titration: 08/21/19 14:00 Dose: 10 mcg/min, 18.8 mls/hr Documented by: Sodium Chloride () 1,000 mls @ 150 mls/hr IV .Q6H40M [facility] Last Admin: 08/21/19 09:40 Dose: 150 mls/hr Documented by: Dextrose (Dextrose 10%-Water) 250 mls @ 999 mls/hr IV .Q16M PRN; Protocol PRN Reason: HYPOGLYCEMIA Last Admin: 08/21/19 13:15 Dose: 999 mls/hr Documented by: Vancomycin IV Pharmacy to Dose (1 ea/ Sodium Chloride) 500 mls @ 250 mls/hr IV PRN PRN; Protocol PRN Reason: Rx to Dose Piperacillin Sod/Tazobactam (Sod 3.375 gm/ Sodium Chloride) 50 mls @ 12.5 mls/hr IV Q8 [facility] Last Admin: 08/21/19 13:24 Dose: 12.5 mls/hr Documented by: Fentanyl () 100 mls @ 5 mls/hr IV UD [facility]; Protocol Last Titration: 08/21/19 14:00 Dose: 50 mcg/hr, 5 mls/hr Documented by: Vancomycin HCl 750 mg/ Sodium (Chloride) 265 mls @ 250 mls/hr IV Q12H [facility] Last Infusion: 08/21/19 12:45 Dose: Infused Documented by: Lactated Ringer's () 1,000 mls @ 999 mls/hr IV .Q1H1M [facility] Stop: 08/21/19 15:25 Last Admin: 08/21/19 14:34 Dose: 999 mls/hr Documented by: Influenza Virus Vaccine Quadrival (Flucelvax /Fluzone ) 0.5 ml IM .ONCE ONE Stop: 08/22/19 10:01 Insulin Human Lispro (Humalog Kwikpen (Bkc)) 0 unit SC Q6 [facility]; Protocol Last Admin: 08/21/19 13:23 Dose: Not Given Documented by: Oseltamivir Phosphate (Tamiflu Susp) 30 mg GT BID [facility] Stop: 08/25/19 22:01 Last Admin: 08/21/19 13:24 Dose: Not Given Documented by: Sodium Chloride () 10 - 40 ml IV UD PRN PRN Reason: SALINE FLUSH Assessment/Plan All Active Problems Cardiac arrest (Acute) Anoxic brain injury (Acute) Influenza (Acute) #1 status post cardiac arrest-now resuscitated-patient was admitted to the ICU, critical care will participate in his care, outlook poor at this point #2 anoxic brain injury-prognosis poor Additional note: Family requested the patient be transferred from [facility] ICU to an acute care hospital, I called [facility] in [place] as their first choice, there were no beds available, I then called [facility], there were no beds available, I then called [facility] in [place], there were no beds available there, I then called [facility] in [place]-no beds available there. I talked with the family and they requested and asked that I call [facility] in [facility], they did have a bed available and they were willing to accept the patient, as this dictation is occurring, patient is going to be transported to [facility] in [facility]. Code Visit Inpatient E&M: 72560 Init Hosp L3
--- NOTE | 2019-08-21 14:56 | CHAPLAIN ---
Type of Pastoral Visit _x__ Initial Visit ___ Follow-up Visit ___ On-call Visit ___ General Patient Visit ___ Spiritual Assessment ___ Family Conference ___ Bereavement ___ Rapid Response ___ Code Blue ___ Other (describe below) Pastoral Care Referral From ___ Patient _x__ Family _x__ Nurse ___ Physician ___ Clerical Adjuster ___ Conservation Scientist ___ Other (describe below) Sacrament/Intervention ___ Active listening ___ Anointing ___ Religious ___ Bereavement ___ Communion ___ Liset exploration ___ ___ Life review _x__ Prayer ___ Reconciliation ___ Sacrament of Sick ___ Supportive presence ___ Wedding _x__ Other (describe below) Pastoral Comments offered a prayer for patient in room; met with family members in waiting room and offered support; met with spouse in hallway and offered time to talk and presence; offered support to medical staff; pt to be transferred out
[2019-08-21 15:23] LABS: M R Staph aureus DNA By PCR Negative (Negative); Probe Check PASS; Specimen Processing Control PASS
[2019-08-21] MEDS: Sodium Bicarbonate 8.4% 50 ML Syringe 50 MEQ IV (15:28)
--- NOTE | 2019-08-21 15:28 | CPS ---
critical abg results handed to at [id number]
[2019-08-21 15:29] LABS: Hematocrit 44.7 % (40-54); Hemoglobin 14.9 g/dL (13.0-16.5); Mean Corp Hgb Conc 33.3 g/dL (32-36); Mean Corpuscular Hgb 31.8 pg (27.0-32.0); Mean Corpuscular Volume 95.5 fL (80-94); Mean Platelet Vol. 8.7 fl (6.2-12.0); POSITIVE MORPHOLOGY YES; Platelet Count 178 K/mm3 (150-450); RBC Distribution Width CV 12.6 % (11.6-14.6); RBC Distribution Width SD 43.3 fl (35.1-43.9); Red Blood Count 4.68 M/mm3 (4.6-6.2); White Blood Count 13.6 K/mm3 (4.4-11.0)
[2019-08-21] MEDS: Epinephrine IV 1 mg/10 ml syringe IV (15:29)
[2019-08-21] MEDS: Dextrose 50%-Water 25 GM/50 ML DISP.SYRIN IV (15:30)
[2019-08-21 15:36] LABS: Allen Test POS; Base Excess -10 mmol/L (-2 to +2); Bicarbonate 17.8 mmol/L (22-26); Blood Gas Specimen Type ART; FI02 100; Mode A-C; O2 Delivery Device Vent; PEEP 5; PO2 85 mmHG (75-100); RR 16; SITE R Radial; SO2 93 % (95-99); Time Given 1520; Total Carbon Dioxide 19 mmol/L; Vt 550; pCO2 47.3 mmHg (35-45); pH 7.18 (7.35-7.45)
[2019-08-21 15:42] LABS: AST(SGOT) 445 U/L (15-37); Alanine Aminotransfer ALT/SGPT 130 U/L (16-61); Albumin, Serum 2.1 g/dL (3.2-5.0); Alkaline Phosphatase 72 U/L (45-117); Anion Gap 7 (5-15); BUN 14 mg/dL (7-18); BUN/Creat Ratio 8.2 RATIO (10-20); Chloride 119 mmol/L (98-107); Creatinine, Serum 1.71 mg/dL (0.70-1.30); EST Glomerular Filtration Rate 51 mL/min (>60); Est Glom Filt Rate - Afr Amer 61 mL/min (>60); Estimated Creatinine Clearance 63.95 ml/min; Globulin 2.2 g/dL (2.2-4.2); Glucose 77 mg/dL (74-106); Potassium 3.5 mmol/L (3.5-5.1); Protein, Total 4.3 g/dL (6.4-8.2); Sodium Level 148 mmol/L (136-145)
[2019-08-21 15:45] LABS: Calcium,Total 5.6 mg/dL (8.5-10.1)
[2019-08-21 16:09] LABS: Differential Indicated MANUAL DIFF
[2019-08-21 16:13] LABS: Lymphocyte 10 % (19-41); Monocyte 10 % (0-10); Neutrophil-Band 33 % (0-5); Neutrophil-Segmented 47 % (47-70); Platelet Estimate ADEQUATE (ADEQ); Red Cell Morphology NORM C+C NORMAL (NORM C&C); Total Cells Counted 100 (MANUAL DIFF)
[2019-08-21 16:14] LABS: Scan Smear per Review Criteria MANUAL DIFF
[2019-08-21 16:16] LABS: Absolute Lymphocyte Count 1.36 X10^3/uL (0.83-4.51); Absolute Neutrophil Count 10.9 X10^3/uL (2.0-7.7)
--- NOTE | 2019-08-21 16:19 | CASEMGMT ---
Social Work SW notified of Code Blue and present with family to take to room. Continued support offered to pt , parents, siblings and extended family. SW will remain available for support. LLOYD Olsen
--- NOTE | 2019-08-21 16:20 | CHAPLAIN ---
Type of Pastoral Visit ___ Initial Visit ___ Follow-up Visit ___ On-call Visit ___ General Patient Visit ___ Spiritual Assessment ___ Family Conference ___ Bereavement ___ Rapid Response _x__ Code Blue ___ Other (describe below) Pastoral Care Referral From ___ Patient ___ Family ___ Nurse ___ Physician ___ Cabin Service Agent ___ Fulling Mill Operator _x__ Other (describe below) Sacrament/Intervention ___ Active listening ___ Anointing ___ Episcopal ___ Bereavement ___ Communion ___ Liset exploration ___ ___ Life review _x__ Prayer ___ Reconciliation ___ Sacrament of Sick _x__ Supportive presence ___ Wedding ___ Other (describe below) Pastoral Comments
[2019-08-21 16:35] LABS: Bedside Glucose 36 mg/dL (70-110)
[2019-08-21 16:35] LABS: Bedside Glucose 34 mg/dL (70-110)
[2019-08-21 16:40] LABS: Bedside Glucose 70 mg/dL (70-110)
[2019-08-21] MEDS: Norepinephrine 16 mg/250 mL 0.9% NS 46.9 MG CONT INF (17:04)
[2019-08-21 17:31] LABS: Bedside Glucose 134 mg/dL (70-110)
[2019-08-21] MEDS: Norepinephrine 16 mg/250 mL 0.9% NS 79.7 MG CONT INF ×2 (20:38→23:36)
--- NOTE | 2019-08-21 21:47 | NURSING ---
educated deferred and unable to perform CAM d/t decreased LOC with RASS -5, family educated.
[2019-08-21] MEDS: Heparin Injection (Vial) 5,000 UNIT/ML VIAL 5000 UNIT SC (22:20)
[2019-08-21] MEDS: OSELTAMIVIR PHOSPHATE 6 MG/ML BOTTLE 30 MG GT (22:20)
[2019-08-21] MEDS: Famotidine 20 MG Tablet GT (22:21)
--- NOTE | 2019-08-21 23:18 | NURSING ---
O2 sats dropping to the 70's on FiO2 100%, respiratory calling Dr. Nguyen for further orders. ETT suctioned with no secretions.
--- NOTE | 2019-08-21 23:52 | NURSING ---
Addendum entered by Rosa Sarkar 08/22/19 02:49: see code documentation Original Note: Notified family of code at 2346 and ROSC at 2351. This RN and Dr. Haynes discussed in length with Next of Kin and other family regarding the poor prognosis for the patient, family would like patient to remain full code at this time.
[2019-08-22] VITALS (8 sets, daily range): BP systolic 71–150; BP diastolic 34–87; PULSE 84–148; RESP 16–23; TEMP 38.3–38.7; O2SAT 81–88
--- NOTE | 2019-08-22 00:22 | PCM.CODE.B ---
Code Blue Summary CODE BLUE was called for patient at 2346. He was found to be in PEA. Patient was resuscitated per ACLS protocol. He received 1 dose of epinephrine per ACLS protocol during CODE BLUE. Patient had spontaneous return of circulation at 2351. I discussed with family about prognosis and CODE STATUS. Present with patient's parents and his and siblings. Patient's stated that her father had gone through similar resuscitative efforts and patient had been present at that time and had stated that if it were to happen to him, he would want everything done for as long as possible. She therefore wanted him to remain full code. Family was in agreement but said that they would reevaluate if he arrested again. A second AGNES BAIN was called at 1:08 AM. Patient was also noted to be hypotensive and in V. tach. Patient was resuscitated per ACLS protocol. He received 5 doses of epinephrine and 2 doses of amiodarone and had to be shocked 4 times. Family stated that they wanted patient to be resuscitated for 15 minutes and if there was still no return of spontaneous circulation, they wanted resuscitation efforts terminated. Resuscitation was carried out from 01:08am to 01:22am, with no return of spontaneous circulation. Per family's wishes, resuscitation efforts were stopped and patient was pronounced at 01:22 AM.
--- NOTE | 2019-08-22 01:08 | NURSING ---
patient in junctional rhythm on monitor, no pulse noted, see code documentation, per family request continued all life saving measures for 15 minutes.
--- NOTE | 2019-08-22 03:57 | NURSING ---
TOD 0128
--- NOTE | 2019-08-22 03:59 | NURSING ---
body released to [facility] at this time, no patient belongings.
--- NOTE | 2019-08-22 06:47 | CPS ---
At 23:20 Aug 21, this PRIMER CHARGING TOOL SETTER called about patient declining pulse ox status. Pulse ox was 70-80 with no improvement after PRIMER CHARGING TOOL SETTER increased vent settings to 100% FiO2 and PeeP of +8. verbally (over telephone) gave order for increasing of PeeP to a max limit of +15. After this order was received, this PRIMER CHARGING TOOL SETTER increased patients PeeP to +12. Later when patient was having desaturations again, a max order of PeeP of +15 had to be utilized.
--- NOTE | 2019-08-24 10:00 | PCM.DEATH ---
Preliminary Cause of Anoxic brain injury secondary to cardiac arrest-etiology unknown Date of Admission: 08/21/19 Date of : 09/20/19 - Principle Diagnosis #1 anoxic brain injury #2 cardiac arrest-etiology unknown #3 PEA secondary to anoxic brain injury #4 influenza B Hospital Course This 28-year-old white male was brought to the emergency room at [facility] by squad after being found minimally responsive in a chair at his home. His stated that she noticed shortly after finding the patient minimally responsive, he became apneic and the squad was called. Squad found the patient to be in ventricular tachycardia when they arrived and carried out ACLS. CPR was in progress for approximately an hour prior to the patient arriving in the emergency room. Been given multiple amps of epinephrine and had a loss of pulse throughout the ACLS protocol prior to coming to the hospital. Upon arrival at the emergency room at [facility], patient was noted to be in PEA and he was given multiple rounds of an effort and bicarbonate. Patient was intubated in the emergency room, chest x-ray was obtained which showed bilateral infiltrates, he was started on Levophed and the patient was taken to the CT scanner where a CT of the brain was performed which showed evidence of anoxic brain injury that was extensive. Cardiology was contacted by the emergency room physician, they felt that patient was not a candidate for a cardiac cath, family members were present in the emergency room physician had a long conversation with them and they desired full measures for the patient. They understood that the patient probably had severe brain injury. Critical care was contacted and saw the patient in the emergency room, the patient was transferred to ICU and the patient's family stated that they wished for the patient be transferred to an acute care hospital-several hospitals were contacted and did not have open beds, finally, [facility] in [place] agreed to take the patient and arrangements were made for a mobile ICU to transport the patient to [facility]. When the mobile ICU arrived to take the patient, patient had another CODE BLUE and had to be resuscitated. Family then requested the patient stay in the hospital here and be transported the next day on 08/22/2019, unfortunately, patient had another CODE BLUE in the early hours of 08/22/2019-this CODE BLUE not successful-patient's family requested resuscitation efforts to be stopped-and the patient on 08/22/2019 at 1:22 AM. Cause of was PEA secondary to anoxic brain injury secondary to cardiac arrest from an unknown etiology. Code Visit Inpatient E&M: [id number] Disch Hosp
== END 2019-08-22 01:22 | DRG 296 ==
LOC: ED 07:32 → ICU 08:26
PROVIDERS: Admitting Provider Internal Medicine; Emergency Provider Emergency Medicine; Referring Provider Internal Medicine Critical Care Medicine; Visit Provider Internal Medicine
DX: I46.9 Cardiac arrest, cause unspecified (principal); J96.01 Acute respiratory failure with hypoxia; G93.1 Anoxic brain damage, not elsewhere classified; N17.9 Acute kidney failure, unspecified; I47.2 Ventricular tachycardia; J10.1 Influenza due to other identified influenza virus with other respiratory manifestations; E83.42 Hypomagnesemia; E83.39 Other disorders of phosphorus metabolism
CPT/HCPCS: 31500; 31720; 36600; 51702; 70450; 71045; 71275; 72020; 80053; 80307; 80320; 81001; 82803; 82962; 83605; 83735; 84100; 84484; 85025; 85610; 85730; 87040; 87086; 87641; 87804; 92950; 93005; 93306; 94002; 94799; 99285; J7030; J7050; J7120; Q9957; Q9967; A4216; C1751; C8929; G0480; J3490